=== PATIENT | female | born 1995 | race Hispanic/Latino ===

== ENCOUNTER 2022-05-19 12:06 | Outpatient (CLI) | payer BC ==
[~2022-05-19 12:06] MED LIST: Iopamidol 300 61% 100 ML VIAL FS ONE
== END 2022-05-19 12:07 | disposition home or self-care (01) ==
LOC: CSHCT 12:06
PROVIDERS: ATTEND Nurse Practitioner Family
DX: R07.89 Other chest pain (principal)
CPT/HCPCS: 71260